=== PATIENT | male | born 1940 | race Caucasian/White ===

== ENCOUNTER → 2020-02-22 | Outpatient (CLI) | payer MEDICARE | END | disposition home or self-care (01) | LOC: STAR 13:13 | PROVIDERS: ATTEND Anesthesiology | DX: Z01.812 Encounter for preprocedural laboratory examination (principal); Z20.828 Contact with and (suspected) exposure to other viral communicable diseases | CPT/HCPCS: 36415; 87635 ==

== ENCOUNTER 2020-02-29 13:36 | Day surgery (SDC) | payer MEDICARE ==
[~2020-02-29] VITALS: Ht 185.4 cm; Wt 165.7 kg
[2020-02-29] MEDS ORDERED: PROPOFOL 10 MG/ML, 20ML ONE (14:12)
[2020-02-29] MEDS ORDERED: GLYCOPYRROLATE 0.2MG/1ML, 5ML ONE (14:12)
[2020-02-29] MEDS ORDERED: ROCURONIUM 10MG/ML,5ML ONE (14:12)
[2020-02-29] MEDS ORDERED: DEXAMETHASONE 4 MG/ML, 1ML ONE (14:12)
[2020-02-29] MEDS ORDERED: MIDAZOLAM 1 MG/ML, 2ML ONE (14:13)
[2020-02-29] MEDS ORDERED: FENTANYL PF 100 MCG/2ML ONE (14:13)
[2020-02-29] MEDS ORDERED: HYDROCHLOROTHIAZIDE (14:26)
[2020-02-29] MEDS ORDERED: TAMSULOSIN (14:26)
[2020-02-29] MEDS ORDERED: VALSARTAN (14:26)
[2020-02-29] MEDS ORDERED: OMEPRAZOLE (14:26)
[2020-02-29] MEDS ORDERED: SIMVASTATIN (14:26)
[2020-02-29 14:27] VITALS: BP 142/100
[2020-02-29] MEDS ORDERED: PLEASE ENTER ALLERGIES MC SCH (14:30)
[2020-02-29] MEDS ORDERED: CHLORHEXIDINE 15 ML UDC MM ONE (14:30)
[2020-02-29] MEDS: LACTATED RINGERS 1,000 ML IV SCH ×2 (14:32→14:36)
[2020-02-29] MEDS ORDERED: CHLORHEXIDINE 15 ML UDC ONE (14:34)
[2020-02-29] MEDS ORDERED: BUPIVACAINE/PF 0.25% ONE (14:46)
[2020-02-29] MEDS ORDERED: OXYcodone 5 MG/5 ML ORAL.SOL UDC PO PRN (15:00)
[2020-02-29] MEDS ORDERED: METHOCARBAMOL 1,000 MG in DEXTROSE 5% 100 ML IV PRN (15:00)
[2020-02-29] MEDS ORDERED: KETOROLAC 30 MG/1 ML IV PRN (15:00)
[2020-02-29] MEDS ORDERED: ALBUTEROL/IPRATROPIUM 2.5MG/0.5MG, 3 ML NPPB PRN (15:00)
[2020-02-29] MEDS ORDERED: LABETALOL 5MG/ML, 20ML IV PRN (15:00)
[2020-02-29] MEDS ORDERED: LORazepam 2 MG/ML, 1ML IVPush PRN (15:00)
[2020-02-29] MEDS ORDERED: HYDROcodone/APAP 7.5-325MG/15ML UDC PO PRN (15:00)
[2020-02-29] MEDS ORDERED: DIAZEPAM 5 MG/ML, 2ML IVPush PRN (15:00)
[2020-02-29] MEDS ORDERED: METOCLOPRAMIDE 5 MG/ML, 2ML IVPush PRN (15:00)
[2020-02-29] MEDS ORDERED: HALOPERIDOL 5 MG/ML IV PRN (15:00)
[2020-02-29] MEDS ORDERED: hydrALAzine 20 MG/ML, 1ML IV PRN (15:00)
[2020-02-29] MEDS ORDERED: HYDROmorphone 1 MG/ML, 1ML INJ IVPush PRN (15:00)
[2020-02-29] MEDS ORDERED: DIPHENHYDRAMINE 50 MG/ML, 1ML IVPush PRN (15:00)
[2020-02-29] MEDS ORDERED: MEPERIDINE/PF 25MG/0.5ML IVPush PRN (15:00)
[2020-02-29] MEDS ORDERED: ACETAMINOPHEN 325 MG TABLET PO PRN (15:00)
[2020-02-29] MEDS ORDERED: EPHEDRINE 50 MG/ML, 1ML IVPush PRN (15:00)
[2020-02-29] MEDS ORDERED: EPHEDRINE 50 MG/ML, 1ML IM PRN (15:00)
[2020-02-29] MEDS ORDERED: MIDAZOLAM 1 MG/ML, 2ML IV PRN (15:00)
[2020-02-29] MEDS ORDERED: ONDANSETRON 2MG/ML, 2ML IVPush PRN (15:00)
[2020-02-29] MEDS ORDERED: FENTANYL PF 100 MCG/2ML IV PRN (15:00)
[2020-02-29] MEDS ORDERED: CEFAZOLIN 1,000 MG ONE (15:29)
[2020-02-29] MEDS ORDERED: ACETAMINOPHEN 325 MG TABLET ONE (17:08)
== END 2020-02-29 18:25 | disposition home or self-care (01) ==
LOC: OR 13:36
PROVIDERS: ATTEND Urology
DX: N47.1 Phimosis (principal); N48.29 Other inflammatory disorders of penis; I10 Essential (primary) hypertension; G47.33 Obstructive sleep apnea (adult) (pediatric); K21.9 Gastro-esophageal reflux disease without esophagitis; E66.01 Morbid (severe) obesity due to excess calories; Z79.899 Other long term (current) drug therapy; Z68.42 Body mass index [BMI] 45.0-49.9, adult; Z98.890 Other specified postprocedural states
CPT/HCPCS: 54161; 88304; 93005; J0690; J1100; J2250; J2704; J3010; J3490; J7120

== ENCOUNTER 2020-11-06 10:36 | Observation (INO) | payer MEDICARE ==
[~2020-11-06] VITALS: Ht 185.4 cm; Wt 163.5 kg
[~2020-11-06 10:36] MED LIST: HYDROCHLOROTHIAZIDE; OMEPRAZOLE; SIMVASTATIN; TAMSULOSIN; VALSARTAN
--- NOTE | 2020-11-06 11:09 | NUR ---
PT STATES HE HAS A STONE STUCK BY HEAD OF PENIS, PT REPORTS HE WAS SENT BY UROLOGIST. C/O PAIN WITH URINATION.
--- NOTE | 2020-11-06 11:26 | NUR ---
TASK RN: TELEPHONE CALL FROM OR. PER OR PT IS SCHEDULED FOR LITHOTRIPSY @1400 BY . NEED RAPID COVID AND FOR PT TO REMAIN NPO. ERP AND PRIMARY RN UPDATED.
[2020-11-06] MEDS ORDERED: SODIUM CHLORIDE FLUSH 10ML SYR IVF ONE (11:30)
[2020-11-06 11:55] LABS: BASOPHILS % (AUTO) 1 % (0-1); EOSINOPHILS % (AUTO) 4 % (1-7); LYMPHOCYTES % (AUTO) 15 % (22-44); MEAN CORPUSCULAR HEMOGLOBIN 30.9 pg (27.5-34.5); MEAN CORPUSCULAR HGB CONC 33.5 g/dL (33.2-36.2); MEAN PLATELET VOLUME 7.7 fL (7.4-10.4); MONOCYTES % (AUTO) 6 % (2-9); NEUTROPHILS % (AUTO) 74 % (42-75); PLATELET COUNT 207 x10^3/uL (130-400); RED BLOOD COUNT 5.23 x10^6/uL (4.38-5.82); RED CELL DISTRIBUTION WIDTH 16.7 % (9.4-14.8)
--- NOTE | 2020-11-06 11:55 | NUR ---
RAPID COVID SAMPLE COLLECTED, CXR AT BEDSIDE. AWAITING OR TRANSPORT.
[2020-11-06 11:56] LABS: MD NO
[2020-11-06 12:04] LABS: ALBUMIN 3.5 g/dL (3.4-5.0); ANION GAP 4 mmol/L (5-15); CALCIUM 9.1 mg/dL (8.5-10.1); CHLORIDE 109 mmol/L (98-107)
--- NOTE | 2020-11-06 12:05 | NUR ---
REPORT TO JOE DESIR.
[2020-11-06 12:50] VITALS: BP 159/90
[2020-11-06] MEDS ORDERED: GABA-827 PO (13:00)
[2020-11-06] MEDS ORDERED: FINA5TAB4 PO (13:00)
[2020-11-06] MEDS ORDERED: CHLORHEXIDINE 15 ML UDC ONE (13:28)
[2020-11-06 13:58] LABS: MICROSCOPIC INDICATED
[2020-11-06] MEDS ORDERED: CHLORHEXIDINE 15 ML UDC PO ONE (14:00)
[2020-11-06] MEDS ORDERED: FENTANYL PF 100 MCG/2ML ONE (14:03)
[2020-11-06] MEDS ORDERED: HYDROmorphone 1 MG/ML, 1ML INJ IVPush PRN (14:30)
[2020-11-06] MEDS ORDERED: PROMETHAZINE 25 MG/ML, 1ML IVPush PRN (14:30)
[2020-11-06] MEDS ORDERED: ONDANSETRON 2MG/ML, 2ML IVPush PRN (14:30)
[2020-11-06] MEDS ORDERED: FENTANYL PF 100 MCG/2ML IV PRN (14:30)
[2020-11-06] MEDS ORDERED: MEPERIDINE/PF 25MG/0.5ML IVPush PRN (14:30)
[2020-11-06] MEDS ORDERED: ACETAMINOPHEN 325 MG TABLET PO PRN (14:30)
[2020-11-06] MEDS ORDERED: HYDROcodone/APAP 7.5-325MG/15ML UDC PO PRN (14:30)
[2020-11-06] MEDS ORDERED: OXYcodone 5 MG/5 ML ORAL.SOL UDC PO PRN (14:30)
[2020-11-06] MEDS ORDERED: GENTAMICIN 80 MG/2 ML ONE (14:49)
[2020-11-06] MEDS ORDERED: OPIUM/BELLADONNA SUPP.RECT 16.2-30 MG ONE (15:02)
[2020-11-06] MEDS ORDERED: DEXAMETHASONE 4 MG/ML, 1ML ONE (15:47)
[2020-11-06] MEDS ORDERED: CEFAZOLIN 1,000 MG ONE (15:47)
[2020-11-06] MEDS ORDERED: ONDANSETRON 2MG/ML, 2ML ONE (15:48)
[2020-11-06] MEDS ORDERED: SUCCINYLCHOLINE 20 MG/ML, 10ML ONE (15:48)
[2020-11-06] MEDS ORDERED: GLYCOPYRROLATE 0.2MG/1ML, 5ML ONE (15:48)
[2020-11-06] MEDS ORDERED: ROCURONIUM 10MG/ML,5ML ONE (15:48)
[2020-11-06] MEDS ORDERED: PROPOFOL 10 MG/ML, 20ML ONE (15:48)
[2020-11-06] MEDS ORDERED: NEOSTIGMINE 1 MG/ML, 10ML ONE (15:48)
[2020-11-06] MEDS ORDERED: ACET-1600 PO (17:40)
[2020-11-06] MEDS ORDERED: OXYcodone IR 5MG TABLET ONE (17:44)
[2020-11-06] MEDS ORDERED: OXYcodone IR 5MG TABLET PO PRN (18:00)
[2020-11-06 18:46] VITALS: BP 130/81
== END 2020-11-06 19:03 | disposition home or self-care (01) ==
LOC: ED 11:22 → EDIP 11:31 → INTOOBSV 11:31 → 4NE 12:24
PROVIDERS: ADMIT Emergency Medicine; ATTEND Emergency Medicine
DX: N21.1 Calculus in urethra (principal); Z20.822 Contact with and (suspected) exposure to COVID-19; N21.0 Calculus in bladder; N20.0 Calculus of kidney; N40.1 Benign prostatic hyperplasia with lower urinary tract symptoms; R33.8 Other retention of urine; N13.8 Other obstructive and reflux uropathy; G47.33 Obstructive sleep apnea (adult) (pediatric); I10 Essential (primary) hypertension; K21.9 Gastro-esophageal reflux disease without esophagitis; E66.01 Morbid (severe) obesity due to excess calories; I51.7 Cardiomegaly; Z79.899 Other long term (current) drug therapy; Z87.442 Personal history of urinary calculi
CPT/HCPCS: 36415; 52310; 71045; 80048; 81001; 82040; 82360; 85025; 87086; 87106; 87635; 88300; 93005; 99285; C1758; C1769; G0378; J0330; J0690; J1100; J1580; J2405; J2704; J2710; J3010